=== PATIENT | female | born 1960 | race Caucasian/White ===

== ENCOUNTER 2019-11-06 12:14 | Outpatient (CLI) | payer BC ==
--- NOTE | 2019-11-06 12:30 | RAD ---
Exam:2 views right hip HISTORY: Pain. Arthritis. COMPARISON: None FINDINGS: There appears to be lucency involving the lateral aspect of the right hip just superior to the acetabulum. Additional lucencies are noted in the ischium and femoral head. Possibility of osseous metastases or changes due to inflammatory arthropathy are differential considerations. Dedica ratemio MRI of the right hip is recommended. IMPRESSION: Abnormal radiographic appearance of the right hip. Dedicated right hip MRI is recommended . CODE T
== END 2019-11-06 12:15 | disposition home or self-care (01) ==
LOC: BICRAD 12:14
PROVIDERS: ATTEND Internal Medicine Rheumatology
DX: M25.551 Pain in right hip (principal)

== ENCOUNTER 2019-11-21 09:30 | Outpatient (CLI) | payer BC ==
--- NOTE | 2019-11-21 10:34 | MRI ---
MR of the Righthip without contrast INDICATION: History of Righthip pain; history of abnormal findings on prior diagnostic radiograph COMPARISON: Right hip radiograph dated November 06, 2019 and MR the left hip dated October 19, 2014 TECHNIQUE: Multiplanar multisequence MR images were obtained of the Right hip without IV contrast. FINDINGS: Bone marrow signal intensity: There is susceptibility artifact on the whole pelvis MR series involvin g the left hip consistent with a total left hip arthroplasty. No suspicious marrow signal abnormality is grossly evident. There are subchondral cystlike abnormalities involving the right acet abulum. Musculature: Normal. Bursa: None. Joint: There is a full-thickness tear involving the anterior superior, superior, posterior superior a nd posterior right hip acetabular labrum with small para labral cyst seen along the posterior superior margin of the right measuring 2 mm. There are areas of full-thickness articular cartilage th inning involving the posterior superior, superior and anterior superior acetabulum with subchondral cyst formation. The degree of degenerative changes of the right hip appear progressed from the MR exa mination in 2015. Nerves: Normal. Intrapelvic contents: There is been interval development of a 2.6 cm simple appearing cyst in the lef t adnexa. 1 cm nabothian cyst is stable to the comparison MR examination dated October 19, 2014. IMPRESSION: 1. Worsening moderate right hip osteoarthrosis with right hip acetabular labral tear and multiple sub chondral cystlike abnormalities of the right acetabulum. The degenerative change and subchondral cystlike abnormalities of the right acetabulum are responsible for the abnormal findings seen on the prior diagnostic radiograph. 2. Interval development of a left adnexal simple cyst measuring 2.6 cm. Findings likely reflect a ser ous inclusion cyst. Recommend follow-up pelvic ultrasound for further characterization. 1 cm nabothian cysts appear similar to the MR examination in 2015.
== END 2019-11-21 09:31 | disposition home or self-care (01) ==
LOC: SCSMRI 09:30
PROVIDERS: ATTEND Internal Medicine Rheumatology
DX: M25.551 Pain in right hip (principal); R93.6 Abnormal findings on diagnostic imaging of limbs; M16.12 Unilateral primary osteoarthritis, left hip; N83.8 Other noninflammatory disorders of ovary, fallopian tube and broad ligament

== ENCOUNTER 2022-01-31 10:50 | Observation (INO) | payer BC ==
[2022-01-30 13:13] VITALS: BMI 22.3
[2022-01-31] MEDS ORDERED: Levofloxacin 500 mg/D5W 100 ml Premix Bag ONE (11:23)
[2022-01-31] MEDS ORDERED: Clindamycin/D5W 900 mg/50 ml Premix Bag ONE (11:23)
[2022-01-31] MEDS ORDERED: Lidocaine 1% MPF 2 ML VIAL ONE (11:24)
[2022-01-31 12:18] LABS: SARS-CoV-2 NAA Rapid Test Not Detected (NotDetected)
[2022-01-31] MEDS ORDERED: Scopolamine 1.5 mg/72 hour Patch ONE (12:36)
[2022-01-31] MEDS ORDERED: Midazolam HCl 2 mg/2 ml Vial ONE (12:36)
[2022-01-31] MEDS ORDERED: Vancomycin 1 GM VIAL ONE (12:42)
[2022-01-31] MEDS ORDERED: Thrombin 5000 UNITS/5 ML VIAL ONE (12:42)
[2022-01-31] MEDS ORDERED: HYDROmorphone 2 MG/ML VIAL ONE ×2 (12:42→16:21)
[2022-01-31] MEDS ORDERED: PROPOFOL 200 MG/20 ML VIAL ONE (12:54)
[2022-01-31] MEDS ORDERED: Esmolol 100 MG/10 ML VIAL ONE (12:54)
[2022-01-31] MEDS ORDERED: GLYCOPYRROLATE/PF 0.2 MG/ML VIAL ONE (12:54)
[2022-01-31] MEDS ORDERED: Ketorolac Tromethamine 30 MG/ML VIAL ONE (12:54)
[2022-01-31] MEDS ORDERED: Rocuronium Bromide 10 MG/ML (10ML VIAL) ONE (12:54)
[2022-01-31] MEDS ORDERED: Dexamethasone 20 MG/5 ML VIAL ONE (12:54)
[2022-01-31] MEDS ORDERED: Phenylephrine 10 MG/ML VIAL ONE (12:54)
[2022-01-31] MEDS ORDERED: Ondansetron PF 4 MG/2 ML Vial ONE (12:54)
[2022-01-31] MEDS ORDERED: Ondansetron PF 4 MG/2 ML Vial IVP PRN (15:32)
[2022-01-31] MEDS ORDERED: diphenhydrAMINE 25 MG CAP PO PRN (15:32)
[2022-01-31] MEDS ORDERED: Acetaminophen 325 MG TAB PO PRN (15:32)
[2022-01-31] MEDS ORDERED: traMADol HCl 50 MG TAB PO PRN (15:32)
[2022-01-31] MEDS ORDERED: tiZANidine HCl 4 MG TAB PO PRN (15:39)
[2022-01-31] MEDS ORDERED: hydrALAZINE 20 MG/ML VIAL SLOW IVP PRN (15:41)
[2022-01-31] MEDS ORDERED: FENTANYL 50 MCG/ML 1 ML VIAL ONE ×3 (15:44→18:55)
[2022-01-31] MEDS ORDERED: HYDROmorphone 2 MG/ML VIAL SLOW IVP PRN (17:00)
[2022-01-31] MEDS ORDERED: Ondansetron HCl/PF 4 MG/2 ML Vial IVP PRN (17:00)
[2022-01-31] MEDS ORDERED: Promethazine HCl 25 MG/ML VIAL IM/IV PRN (17:00)
[2022-01-31] MEDS ORDERED: Morphine 4 MG/ML VIAL SLOW IVP PRN (17:13)
[2022-01-31] MEDS: Sodium Chloride 0.9% 1,000 ML IV SCH (17:48)
[2022-01-31] MEDS: Gabapentin 300 MG CAP PO SCH (20:42)
[2022-01-31] MEDS: Clindamycin/D5W 900 MG in Premix Bag 1 BAG IVPB SCH (20:43)
[2022-01-31] MEDS: Acetaminophen/Codeine 30-300mg Tablet PO PRN (20:43)
[2022-01-31] MEDS: HYDROcodone/Acetaminophen 7.5/325 mg Tablet PO PRN (22:48)
[2022-02-01] MEDS: Acetaminophen/Codeine 30-300mg Tablet PO PRN (02:02)
[2022-02-01] MEDS: Sodium Chloride 0.9% 1,000 ML IV SCH (03:11)
[2022-02-01] MEDS: Clindamycin/D5W 900 MG in Premix Bag 1 BAG IVPB SCH (05:24)
[2022-02-01] MEDS: HYDROcodone/Acetaminophen 7.5/325 mg Tablet PO PRN ×2 (05:35→10:05)
[2022-02-01] MEDS: Floranex 1 GM Packet PO SCH ×3 (08:28→08:31)
[2022-02-01] MEDS: Gabapentin 300 MG CAP PO SCH ×2 (08:28→12:45)
[2022-02-01 08:38] VITALS: BP 101/64; TEMP 98.2
[2022-02-01] MEDS ORDERED: Venlafaxine HCl XR 150 MG CAP PO SCH (09:00)
[2022-02-01] MEDS ORDERED: Plecanatide [Trulance] 3 MG Tablet PO SCH (09:00)
== END 2022-02-01 12:55 | disposition home or self-care (01) ==
LOC: SDC 10:50 → SURG A 19:33
PROVIDERS: ADMIT Surgery; ATTEND Surgery
PROC: 01NB0ZZ Release Lumbar Nerve, Open Approach (ICD-10-PCS; principal; 2022-01-31)
PROC: 01NR0ZZ Release Sacral Nerve, Open Approach (ICD-10-PCS; 2022-01-31)
DX: M48.062 Spinal stenosis, lumbar region with neurogenic claudication (principal); M54.16 Radiculopathy, lumbar region; Z79.899 Other long term (current) drug therapy; Z88.0 Allergy status to penicillin; Z96.643 Presence of artificial hip joint, bilateral; Z96.651 Presence of right artificial knee joint; Z20.822 Contact with and (suspected) exposure to COVID-19
CPT/HCPCS: 96374; 96376; G0378; J1100; J1170; J1885; J1956; J2250; J2370; J2405; J2704; J3010; J3370; J3490; U0002